=== PATIENT | female | born 1965 | race African-American/Black ===

== ENCOUNTER 2017-12-22 10:41 | Emergency (ER) | payer OTHER ==
[2017-12-22] MEDS: ASPIRIN 325 MG TAB PO (11:16)
[2017-12-22 11:29] LABS: ADD MAN DIFF? NO
[2017-12-22 11:30] LABS: BASOPHILS % 0.5 % (0.0-2.0); EOSINOPHILS % 0.7 % (0.0-7.0); HEMATOCRIT 44.1 % (37.0-47.0); HEMOGLOBIN 13.8 g/dl (12.0-16.0); LYMPHOCYTES # 1.7 10^3/ul (0.8-2.9); LYMPHOCYTES % 29.3 % (15.0-51.0); MEAN CORPUSCULAR HEMOGLOBIN 27.1 pg (29.0-33.0); MEAN CORPUSCULAR HGB CONC 31.3 g/dl (32.0-37.0); MEAN CORPUSCULAR VOLUME 86.5 fl (82.0-101.0); MEAN PLATELET VOLUME 9.3 fl (7.4-10.4); MONOCYTE # 0.5 10^3/ul (0.3-0.9); MONOCYTES % 9.2 % (0.0-11.0); NEUTROPHIL # 3.5 10^3/ul (1.6-7.5); PLATELET COUNT 284 10^3/UL (140-415); RED CELL DISTRIBUTION WIDTH 13.9 % (11.5-14.5)
[2017-12-22 11:30] LABS: WHITE BLOOD COUNT 5.8 10^3/ul (4.8-10.8)
[2017-12-22 11:59] LABS: ALANINE AMINOTRANSFERASE 24 IU/L (13-69); ALBUMIN 4.1 g/dl (3.3-4.9); ALBUMIN/GLOBULIN RATIO 1.28; ALKALINE PHOSPHATASE 68 IU/L (42-121); ANION GAP 16 (8-16); ASPARTATE AMINO TRANSFERASE 16 IU/L (15-46); BILIRUBIN,INDIRECT 0.2 mg/dl (0-1.1); BILIRUBIN,TOTAL 0.2 mg/dl (0.2-1.3); BLOOD UREA NITROGEN 13 mg/dl (7-20); CARBON DIOXIDE 22 mmol/L (21-31); CHLORIDE 111 mmol/L (97-110); GLUCOSE 92 mg/dl (70-220); POTASSIUM 4.1 mmol/L (3.5-5.1); SODIUM 145 mmol/L (135-144); TOTAL PROTEIN 7.3 g/dl (6.1-8.1)
[2017-12-22 12:05] LABS: INR 0.93; PROTIME 12.5 Sec (11.9-14.9)
[2017-12-22 12:09] LABS: TROPONIN-I < 0.010 ng/ml (0.000-0.120)
[2017-12-22 12:39] LABS: PARTIAL THROMBOPLASTIN TIME 27.8 Sec (25.0-35.0)
[2017-12-22] MEDS: HYDROCODONE/APAP (5/325) TAB PO (13:09)
== END 2017-12-22 13:15 | disposition home or self-care (01) ==
LOC: FTE 10:41
DX: M19.90 Unspecified osteoarthritis, unspecified site (principal); M79.1 Myalgia; I10 Essential (primary) hypertension
CPT/HCPCS: 36415; 71046; 73030; 80053; 84484; 85025; 85610; 85730; 93005; 99285-25

== ENCOUNTER 2018-02-04 12:00 | Emergency (ER) | payer OTHER ==
[2018-02-04] MEDS: KETOROLAC 30 MG INJ IM (13:06)
[2018-02-04] MEDS: IBUPROFEN 600 MG TAB PO (14:00)
== END 2018-02-04 14:47 | disposition home or self-care (01) ==
LOC: FTE 12:00
DX: S89.92XA Unspecified injury of left lower leg, initial encounter (principal); W10.8XXA Fall (on) (from) other stairs and steps, initial encounter; Y92.9 Unspecified place or not applicable
CPT/HCPCS: 72170; 73502; 73510; 73550; 73552; 81025; 96372; 99284-25